=== PATIENT | female | born 1990 | race Caucasian/White ===

== ENCOUNTER 2020-12-08 18:20 | Emergency (ER) | payer OTHER ==
[2020-12-08] MEDS ORDERED: Sodium Chloride 0.9% 10 ML Syringe FLUSH PRN (18:44)
--- NOTE | 2020-12-08 18:56 | EDM.PDOC ---
ED HPI GENERAL MEDICAL PROBLEM - General Chief Complaint: CONSTRUCTION PLANT OPERATOR Problem Stated Complaint: 16 WKS PG CRAMPING AND SPOTTING Time Seen by Provider: 12/08/20 18:43 Source of Information: Reports: Patient, RN Notes Reviewed History Limitations: Reports: No Limitations - History of Present Illness INITIAL COMMENTS - FREE TEXT/NARRATIVE: Patient is a 29-year-old female who presents to the ER for the evaluation of her cramping and spotting while being 16 weeks . Patient's CONSTRUCTION PLANT OPERATOR is Dr. Olivo, she is a G3, P1 with 1 spontaneous miscarriage. Patient notes that she has been having some issues with spotting, roughly 2 weeks ago and she had a ultrasound at that time and was diagnosed with placenta previa. Patient notes that she has having some lower abdomen discomfort and pelvic cramping and did notice some spotting again today, so she comes to the ER for evaluation. She notes she did not call her CONSTRUCTION PLANT OPERATOR for today's purposes. She is not passing enough blood per vagina even to warrant a pad at this time. She is not complaining of any urinary issues like dysuria, frequency or urgency. She states that the pain is sharp and crampy in nature, seems to be constant but nothing seems to make it worse or better. Not having any fevers or chills, cough or shortness of breath, nausea/vomiting/diarrhea. Bilateral Lower Pelvic Pain Score (Numeric/FACES): 2 - Related Data Allergies Allergy/AdvReac Type Severity Reaction Status Date / Time Sulfa (Sulfonamide Allergy Rash Verified 12/08/20 18:54 Antibiotics) Home Meds: Home Meds Cefdinir [Omnicef] 300 mg PO BID 5 Days #10 cap 12/08/20 [Rx] Levothyroxine Sodium [Synthroid] 137 mcg PO ACBREAKFAST 12/08/20 [History] ED ROS GENERAL - Review of Systems Review Of Systems: Comprehensive ROS is negative, except as noted in HPI. ED EXAM - Physical Exam Exam: See Below Exam Limited By: No Limitations General Appearance: Alert, WD/WN, No Apparent Distress Respiratory/Chest: No Respiratory Distress, Lungs Clear, Normal Breath Sounds, No Accessory Muscle Use, Chest Non-Tender Cardiovascular: Normal Peripheral Pulses, Regular Rate, Rhythm, No Edema GI/Abdominal Exam: Normal Bowel Sounds, Soft, No Distention, No Mass, Tender (lower abdomen/pelvis) Heart Tones: Present Movement: Not Appreciated Extremities: Normal Inspection, Normal Capillary Refill Neurological: Alert, Oriented, Normal Cognition, No Motor/Sensory Deficits Psychiatric: Normal Affect, Normal Mood Skin Exam: Warm, Dry, Intact, Normal Color, No Rash Course - Vital Signs Last Recorded V/S: Last Vital Signs Temp 97.5 F 12/08/20 18:43 Pulse 102 H 12/08/20 18:43 Resp 18 12/08/20 18:43 BP 146/93 H 12/08/20 18:43 Pulse Ox 98 12/08/20 18:43 - Orders/Labs/Meds Orders: Active Orders 24 hr Category Date Time Status Peripheral IV Care [RC] . DIRECTED Care 12/08/20 18:45 Active CULTURE URINE [RM] Routine Lab 12/08/20 19:15 Received TYPE AND SCREEN [BBK] Stat Lab 12/08/20 19:15 Received Sodium Chloride 0.9% [Saline Flush] Med 12/08/20 18:44 Active 10 ml FLUSH ASDIRECTED PRN Peripheral IV Insertion Adult [OM.PC] Routine Oth 12/08/20 18:44 Ordered Medication Orders Sodium Chloride (Sodium Chloride 0.9% 10 Ml Syringe) 10 ml FLUSH ASDIRECTED PRN PRN Reason: Keep Vein Open Last Admin: 12/08/20 19:05 Dose: 10 ml Documented by: DASHA Labs: Laboratory Tests 12/08/20 12/08/20 Range/Units 19:15 19:36 WBC 9.77 (3.98-10.04) K/mm3 RBC 4.24 (3.98-5.22) M/mm3 Hgb 11.9 D (11.2-15.7) gm/dl Hct 36.5 (34.1-44.9) % MCV 86.1 (79.4-94.8) fl MCH 28.1 (25.6-32.2) pg MCHC 32.6 (32.2-35.5) g/dl RDW Std Deviation 45.6 (36.4-46.3) fL Plt Count 350 (182-369) K/mm3 MPV 9.4 (9.4-12.3) fl Neut % (Auto) 61.8 (34.0-71.1) % Lymph % (Auto) 29.3 (19.3-51.7) % [place] % (Auto) 7.2 (4.7-12.5) % Eos % (Auto) 1.5 (0.7-5.8) Baso % (Auto) 0.1 (0.1-1.2) % Neut # (Auto) 6.04 (1.56-6.13) K/mm3 Lymph # (Auto) 2.86 (1.18-3.74) K/mm3 [place] # (Auto) 0.70 H (0.24-0.36) K/mm3 Eos # (Auto) 0.15 (0.04-0.36) K/mm3 Baso # (Auto) 0.01 (0.01-0.08) K/mm3 Urine Color Yellow (Yellow) Urine Appearance Slt cloudy H (Clear) Urine pH 6.0 (5.0-8.0) Ur Specific [place] > or = 1.030 (1.005-1.030) Urine Protein Negative (Negative) Urine Glucose (UA) Negative (Negative) Urine Ketones Negative (Negative) Urine Occult Blood 2+ H (Negative) Urine Nitrite Negative (Negative) Urine Bilirubin Negative (Negative) Urine Urobilinogen 0.2 (0.2-1.0) Ur Leukocyte Esterase 1+ H (Negative) Urine RBC 5-10 H (0-5) /hpf Urine WBC 10-20 H (0-5) /hpf Ur Squamous Epith Cells 10-20 H (0-5) /hpf Urine Bacteria Many H (FEW) /hpf Urine Mucus Moderate H (FEW) /hpf Meds: Medications Generic Name Dose Route Start Last Admin Trade Name Freq PRN Reason Stop Dose Admin Sodium Chloride 10 ml 12/08/20 18:44 12/08/20 19:05 Sodium Chloride 0.9% 10 Ml Syringe FLUSH 10 ml ASDIRECTED PRN Administration Keep Vein Open - Re-Assessments/Exams Free Text/Narrative Re-Assessment/Exam: 12/08/20 19:16 Patient presents to the ER for her vaginal spotting/abdominal cramping in . We will go ahead and get an ultrasound for evaluation of the fetus, and take some basic labs for evaluation. 12/08/20 20:34 Basic labs have been obtained, hemoglobin is within normal limits, the patient's urinalysis is positive for UTI at this time was sent for culture. She be placed on oral Omnicef for management. Ultrasound shows a gestational age of 16 weeks 0 days, and appropriate amount of amniotic fluid. The placenta appears anterior and does appear to be slightly low-lying no findings of placental abruption. We will put her on bedrest for the weekend and have her follow-up with Dr. Olivo on Friday for ongoing management. Departure - Departure Time of Disposition: 20:35 Disposition: Home, Self-Care 01 Condition: Good Clinical Impression: Abdominal cramping complicating UTI (urinary tract infection) during Qualifiers: Trimester: second trimester Qualified Code(s): O23.42 - Unspecified infection of urinary tract in , second trimester - Discharge Information *PRESCRIPTION DRUG MONITORING PROGRAM REVIEWED*: No *COPY OF PRESCRIPTION DRUG MONITORING REPORT IN PATIENT FIDEL: No Prescriptions: Cefdinir [Omnicef] 300 mg PO BID 5 Days #10 cap Instructions: Abdominal Pain During , [id number], Urinary Tract Infection, Adult Referrals: Shirlene Hurtado POLICE DETECTIVE [Primary Care Provider] - Forms: ED Department Discharge Additional Instructions: You were evaluated in the ER today regarding your abdominal pain/vaginal bleeding in . You did have some labs drawn, and these were within normal limits. Your ultrasound demonstrated a fetus of roughly 16 weeks gestation, heart rate was 142 bpm, your placenta was low-lying, but there is no sign of placental abruption. Which is a good thing. Urine is suggestive of UTI at this time, will be started on Omnicef, 1 tablet twice daily for the next 5 days. This medication was electronically [facility] [place] [facility] Recommend that you do not lift anything heavier than a gallon of milk (5 lbs), do not engage in sexual activities, try to get as much pelvic rest as possible for the next few days. Please try not to exert yourself, rest and relax, and take it easy. Ideally if you could be on bed rest for the weekend this would be the best option. If you are start to bleed through more than 1-2 maxi pads every couple hours, this would be cause for concern to return to the ER for immediate management. Please follow up with your CONSTRUCTION PLANT OPERATOR on 12/11/2020, for ongoing management and follow-up appointment if possible. Please return to the ED at any time if your symptoms change or worsen. Sepsis Event Note (ED) - Evaluation Sepsis Screening Result: No Definite Risk - Focused Exam Vital Signs: Vital Signs Temp Pulse Resp BP Pulse Ox 12/08/20 18:43 97.5 F 102 H 18 146/93 H 98 - My Orders Last 24 Hours: My Active Orders 12/08/20 18:44 Sodium Chloride 0.9% [Saline Flush] 10 ml FLUSH ASDIRECTED PRN Peripheral IV Insertion Adult [OM.PC] Routine 12/08/20 18:45 Peripheral IV Care [RC] . DIRECTED 12/08/20 19:15 CULTURE URINE [RM] Routine TYPE AND SCREEN [BBK] Stat - Assessment/Plan Last 24 Hours: My Active Orders 12/08/20 18:44 Sodium Chloride 0.9% [Saline Flush] 10 ml FLUSH ASDIRECTED PRN Peripheral IV Insertion Adult [OM.PC] Routine 12/08/20 18:45 Peripheral IV Care [RC] . DIRECTED 12/08/20 19:15 CULTURE URINE [RM] Routine TYPE AND SCREEN [BBK] Stat
--- NOTE | 2020-12-08 20:18 | US ---
Obstetrical ultrasound: Multiple real-time images were obtained transabdominally. Comparison: Previous obstetrical ultrasounds are available, most recent study of 11/27/20. Dates: Working HOLLY: 05/25/21, gestational age 16 weeks 0 days Current ultrasound: HOLLY 05/25/21, gestational age 16 weeks 0 days presentation: Cephalic Placenta: Anterior and appears to be slightly low lying, no findings of placental abruption Amniotic fluid: SARAH 10.24 cm Measurements: BPD: 3.10 cm - 15 weeks 6 days Head circumference: 11.88 cm - 16 weeks 0 days Abdominal circumference: 9.94 cm - 16 weeks 0 days Femur: 1.95 cm - 15 weeks 6 days Estimated weight: 138 g (0 lbs. 5 oz.), estimated weight 34th percentile for age by working HOLLY and current ultrasound Heart rate: 142 bpm Cervical length: 4.20 cm Impression: 1. Single intrauterine fetus currently cephalic in presentation. Dates as noted above. 2. Low-lying placenta. 3. No other complicating abnormality is identified on obstetrical ultrasound study. Diagnostic code #2
== END 2020-12-08 20:54 | disposition home or self-care (01) ==
LOC: JD.ED 18:20
DX: O23.42 Unspecified infection of urinary tract in pregnancy, second trimester (principal); Z88.2 Allergy status to sulfonamides; Z79.899 Other long term (current) drug therapy; Z3A.16 16 weeks gestation of pregnancy
CPT/HCPCS: 36415; 76816; 76816-26; 81001; 85025; 86850; 86900; 86901; 87086; 99283; 99284-25

== ENCOUNTER 2021-05-21 07:01 | Inpatient (IN) | payer OTHER ==
[~2021-05-21 07:01] MED LIST: Bupivacaine 0.25% 10 ML SDV ONE
[2021-05-21] MEDS ORDERED: Ondansetron 4 MG/2 ML SDV IVPUSH PRN ×2 (07:14→07:34)
[2021-05-21] MEDS ORDERED: fentaNYL 100 MCG/2 ML SDV EPIDUR PRN (07:14)
[2021-05-21] MEDS ORDERED: diphenhydrAMINE 50 MG/ML SDV IVPUSH PRN (07:14)
[2021-05-21] MEDS ORDERED: Acetaminophen 325 MG Tab PO PRN (07:30)
[2021-05-21] MEDS ORDERED: Sodium Chloride 0.9% 10 ML Syringe FLUSH PRN (07:30)
[2021-05-21] MEDS ORDERED: Lidocaine 1% 50 ML MDV INJECT ONE (07:34)
[2021-05-21] MEDS ORDERED: Nalbuphine 10 MG/1 ML Vial IVPUSH PRN (07:34)
[2021-05-21] MEDS ORDERED: Calcium Carbonate 500 MG Tab.Chew PO PRN (07:34)
[2021-05-21] MEDS ORDERED: Oxytocin/Lactated Ringers 10 UNIT/1,000 ML BAG IV SCH (07:45)
[2021-05-21] MEDS: Lactated Ringers 1,000 ML IV SCH ×2 (08:04→16:48)
[2021-05-21] MEDS: Oxytocin/Lactated Ringers 10 UNIT/1,000 ML BAG IV SCH ×2 (08:04→15:34)
--- NOTE | 2021-05-21 09:35 | PCM.LDHP ---
L&D History of Present Illness - General Date of Service: 05/21/21 Admit Problem/Dx: Patient Status Order with Admit Dx/Problem 05/21/21 07:30 Patient Status [ADT] Routine Admission Diagnosis/Problem Admission Diagnosis/Problem 05/21/21 09:23 Avani is a 30-year-old 3 para 1-0-1-1 female admitted at 39-3/7 weeks gestational age with an HOLLY of 05/25/2021 for induction of labor. Source of Information: Patient History Limitations: Reports: No Limitations - History of Present Illness Introduction:: Avani is a 30-year-old 3 para 1-0-1-1 female admitted at 39-3/7 weeks gestational age with an HOLLY of 05/25/2021 for induction of labor. Seizure, risk, benefits, alternatives of care allowing for natural onset of labor all discussed with patient. She appears understand and wished to proceed. Risk factors for the include her weight of 256 pounds, hypothyroidism on replacement, history of asthma with exercise exacerbation, history of hydramnios in third trimester. Her prequel noninvasive screen done at first visit was negative for trisomy 2118 and 13. MILL WORK history: Avani is a 3 para 1-0-1-1. She had menarche at approximately age 11. Cycles are regular with interval at approximately 42 days. Last menstrual period was on 08/18/2020 and was fairly certain. She had multiple ultrasounds since that time all agreeing with her last menstrual p eriod. She is not using control time of conception. She has no history of abnormal Pap smears or sexually transmitted infections. She had infertility previously and took Clomid for this. History of miscarriage in 2017. 1 full- term delivery in 2008male infant born 05/10/2009 at 40 weeks gestational age after 24 hours of labor. 8 pounds 8 ounces. Epidural used. . Child's name is Ghassan. course: Patient was seen early in starting at 10-3/7 weeks gestational age. Ultrasound at that time was consistent with her dates. She had numerous ultrasounds because of the hydramnios and interval growth evaluation and these all correlated well with her dates by LMP. On last evaluation her baby on 05/14/2021 was estimated weight 6 pounds 14 ounces. Hydramnios is noted with an SARAH of 31.0 cm. She was seen by Dr. Kelvin LEZAMA for hydramnios and third trimester. That evaluation was positive hydramnios but unremarkable for potential cause of hydramnios. She had a -1-hour GTT. Her noninvasive screen with prequel was negative for trisomy 21, 18 and 13. No evidence of congenital anomaly was noted on tertiary level ultrasound screening exam. She has been cleared to deliver in [place]. Patient is group B strep negative. She desires natural but would like to use an epidural if necessary. Patient has exercise-induced asthma which is not causing her problems during the . She is hypothyroid on replacement and clinically euthyroid. She plans to breast-feed. Prequel is negative as described above. Tdap was given on 03/19/2021. MMR will evaluation shows her to be immune to rubella. Hepatitis B immunization given 2006. Last Td was given 03/27/2020. Laboratory testing in shows blood to be a positive negative [place] screen. Personal hemoglobin is 13.4 g/dL. Platelets 372,000. She is rubella immune. RPR is nonreactive. Urine culture was negative. Hepatitis B surface antigen and HIV assays were both negative. Chlamydia gonorrhea and hepatitis C antibody assays were negative. TSH on 10/09/2020 was normal at 2.757 milliunits per liter. Second trimester laboratory testing showed hemoglobin 11.2 g/dL. Platelets were 277,000. There are GTT was normal at 89 fasting, 142 at 1 hour, 112 with both 2 and 3-hour intervals. Group B strep screen negative. Allergies: Sulfa drugs which cause a rash some environmental allergies noted also Medications: 1. Levothyroxine 137 mg p.o. daily 2. ProAir HFA inhaler 108 (90 base) 1 to 2 puffs every 6 hours as needed for asthma 3. vitamins 4. Folic acid tablets daily (dose unknown) Past medical history: 1. Miscarriage x1 2. x1 3. Hypothyroidism on replacementclinically euthyroid 4. Remote history of infertility. 5. Varicose veins. Past surgical history: 1. Left ankle surgery 2009 Family history: Mother is alive and healthy at age 51. Maternal grand father is alive with history of lung cancer with chemotherapy, colon cancer and prostate cancernon-smoker. Paternal grandmother is alive with history of intestinal cancer and heart disease. Father is alive and well age 61. Paternal grandfather is alive history of prostate cancer. Paternal grandmother is secondary to heart disease. Did have breast cancer also. 1 brother 1 sister alive and well. No family history bleeding or clotting disorders, an esthesia problems or related problems. Social history: Patient is . is Jossue. She is a college graduate. She works in daycare. She lives in [place] with her family. She does not use any significance alcohol, drugs or tobacco. Review of systems: In general patient has no complaints. Skin: Negative Lungs: No infectious symptoms or shortness of breath Cardiovascular: No chest pain or exercise intolerance Breasts: No lumps, changes in size, pain, dimpling, discharge or axillary or supraclavicular concerns. GI: Negative : body habitus changes baby is active. She has had some contractions in the last 3 days. Musculoskeletal: Negative Neurological: Negative Physical exam: In general the patient is well-developed, well-nourished, pleasant female of stated age in no acute distress. Skin is warm dry without lesions. HEENT, neck and back within normal limits. Lungs are clear with good breath sounds in all lung mclean. Cardiovascular exam shows regular and rhythm without murmurs. Breast exam is deferred have been done at first annual visit and found to be normal is not repeated at this time. Patient does plan to breast-feed. Abdomen is gravid with fundal height on last evaluation clinic at 40.5 cm. Baby in vertex presentation. mariia. Genital per digital evaluation shows cervix to be 2+ centimeters, 7% effaced, -3 station, mid position, soft. Baby in vertex presentation.. Extremities and neurological exam are grossly within normal limits. - Related Data Allergies/Adverse Reactions: Allergies Allergy/AdvReac Type Severity Reaction Status Date / Time Sulfa (Sulfonamide Allergy Rash Verified 12/08/20 18:54 Antibiotics) Home Medications: Home Meds Cefdinir [Omnicef] 300 mg PO BID 5 Days #10 cap 12/08/20 [Rx] Levothyroxine Sodium [Synthroid] 137 mcg PO ACBREAKFAST 12/08/20 [History] Past Medical History - Past Health History Medical/Surgical History: Denies Medical/Surgical History Respiratory History: Reports: Asthma Endocrine/Metabolic History: Reports: Hypothyroidism - Infectious Disease History Infectious Disease History: Reports: Novel Coronavirus - Past Surgical History Endocrine Surgical History: Reports: None Social & Family History - Family History Family Medical History: No Pertinent Family History - Caffeine Use Caffeine Use: Reports: None H&P Review of Systems - Review of Systems: Review Of Systems: See Below L&D Exam - Exam Exam: See Below - Vital Signs Vital Signs: Last Vital Signs Temp 36.9 C 05/21/21 07:25 Pulse 99 05/21/21 07:25 Resp BP 119/54 L 05/21/21 07:25 Pulse Ox 96 05/21/21 07:25 Weight: 115.666 kg - Patient Data Lab Results Last 24 hrs: Laboratory Results - last 24 hr 05/21/21 05/21/21 05/21/21 Range/Units 07:30 07:45 07:45 WBC 9.76 (3.98-10.04) K/mm3 RBC 4.03 (3.98-5.22) M/mm3 Hgb 11.5 (11.2-15.7) gm/dl Hct 35.1 (34.1-44.9) % MCV 87.1 (79.4-94.8) fl MCH 28.5 (25.6-32.2) pg MCHC 32.8 (32.2-35.5) g/dl RDW Std Deviation 46.2 (36.4-46.3) fL Plt Count 277 (182-369) K/mm3 MPV 9.6 (9.4-12.3) fl SARS-CoV-2 RNA (RHONDA) Negative (NEGATIVE) Blood Type A POSITIVE Gel Antibody Screen Negative Result Diagrams: 05/21/21 07:45 - Problem List (1) 39 weeks gestation of SNOMED Code(s): 48557351 ICD Code: Z3A.39 - 39 WEEKS GESTATION OF Status: Acute Current Visit: Yes (2) Hydramnios SNOMED Code(s): 42320817 ICD Code: O40.9XX0 - POLYHYDRAMNIOS, UNSP TRIMESTER, NOT APPLICABLE OR UNSP Status: Acute Current Visit: Yes (3) Hypothyroidism SNOMED Code(s): 68610547 ICD Code: E03.9 - HYPOTHYROIDISM, UNSPECIFIED Status: Acute Current Visit: Yes (4) Obesity SNOMED Code(s): 817185291, 856830274 ICD Code: E66.9 - OBESITY, UNSPECIFIED Status: Acute Current Visit: Yes (5) History of miscarriage SNOMED Code(s): 620988482 ICD Code: Z87.59 - PERSONAL HISTORY OF COMP OF PREG, CHLDBRTH AND THE PUERP Status: Acute Current Visit: Yes Problem List Initiated/Reviewed/Updated: Yes Orders Last 24hrs: Active Orders 24 hr Category Date Time Status Patient Status [ADT] Routine ADT 05/21/21 07:30 Active Communication Order [RC] ASDIRECTED Care 05/21/21 07:30 Active Communication Order [RC] ASDIRECTED Care 05/21/21 07:30 Active Communication Order [RC] ASDIRECTED Care 05/21/21 07:30 Active Communication Order [RC] ASDIRECTED Care 05/21/21 07:35 Active Heart Tones [RC] ASDIRECTED Care 05/21/21 07:35 Active Monitoring [RC] INTERMITTENT Care 05/21/21 07:30 Active Notify Provider [RC] ASDIRECTED Care 05/21/21 07:14 Active Notify Provider [RC] ASDIRECTED Care 05/21/21 07:30 Active Notify Provider [RC] PFP Care 05/21/21 07:35 Active Notify Provider [RC] PRN Care 05/21/21 07:35 Active Oxygen Therapy [RC] ASDIRECTED Care 05/21/21 07:14 Active Peripheral IV Care [RC] . DIRECTED Care 05/21/21 07:31 Active Pulse Oximetry [RC] ASDIRECTED Care 05/21/21 07:14 Active Pump Management, Intrathecal [RC] ASDIRECTED Care 05/21/21 07:35 Active Up ad Batsheva [RC] ASDIRECTED Care 05/21/21 07:33 Active Urinary Catheter Assessment [RC] ASDIRECTED Care 05/21/21 07:34 Active Vaginal Exam [RC] ASDIRECTED Care 05/21/21 07:30 Active Vital Signs [RC] ASDIRECTED Care 05/21/21 07:30 Active Regular Diet [DIET] Diet 05/21/21 Breakfast Active CORONAVIRUS COVID-19 RHONDA [MOLEC] Stat Lab 05/21/21 07:30 Received RAPID PLASMA REAGIN,RPR [CHEM] Routine Lab 05/21/21 07:45 Received Acetaminophen [TylenoL] Med 05/21/21 07:30 Active 650 mg PO Q4H PRN Bupivacaine/fentaNYL/NS [fentaNYL/Bupivacaine/NS 2 MCG- Med 05/21/21 07:15 Active 0.125% 100 ML] 100 ml EPIDUR ASDIRECTED Calcium Carbonate [Tums] Med 05/21/21 07:34 Active 1,000 mg PO Q2H PRN Lactated Ringers [Ringers, Lactated] 1,000 ml Med 05/21/21 07:30 Active IV ASDIRECTED Nalbuphine [Nubain] Med 05/21/21 07:34 Active 10 mg IVPUSH Q2H PRN Ondansetron [Zofran] Med 05/21/21 07:14 Active 4 mg IVPUSH ONETIME PRN Ondansetron [Zofran] Med 05/21/21 07:34 Active 4 mg IVPUSH Q4H PRN Oxytocin/Lactated Ringers [Pitocin in LR 10 Units/1,000 Med 05/21/21 07:45 Active ML] 10 unit in 1,000 ml IV .CONTINUOUS Oxytocin/Lactated Ringers [Pitocin in LR 10 Units/1,000 Med 05/21/21 07:30 Active ML] 10 unit in 1,000 ml IV TITRATE Phenylephrine HCl In 0.9% NaCl [Phenylephrine 1 MG/10 Med 05/21/21 07:14 Active ML-NS] 0.1 mg IVPUSH Q10M PRN Sodium Chloride 0.9% [Saline Flush] Med 05/21/21 07:30 Active 10 ml FLUSH ASDIRECTED PRN diphenhydrAMINE [Benadryl] Med 05/21/21 07:14 Active 25 mg IVPUSH Q6H PRN ePHEDrine [ePHEDrine sulfate] Med 05/21/21 07:14 Active 5 mg IVPUSH ASDIRECTED PRN fentaNYL [Sublimaze] Med 05/21/21 07:14 Active 100 mcg EPIDUR Q3H PRN Electronic Heart Tones Ext w TOCO [WOMSER] Oth 05/21/21 07:35 Ordered Routine Electronic Heart Tones Internal [WOMSER] Per Unit Oth 05/21/21 07:35 Ordered Routine Peripheral IV Insertion Adult [OM.PC] Routine Ot 05/21/21 07:30 Ordered Medication Orders Acetaminophen (Acetaminophen 325 Mg Tab) 650 mg PO Q4H PRN PRN Reason: Fever greater than 100.4 Calcium Carbonate/Glycine (Calcium Carbonate 500 Mg Tab.Chew) 1,000 mg PO Q2H PRN PRN Reason: Indigestion Diphenhydramine HCl (Diphenhydramine 50 Mg/Ml Sdv) 25 mg IVPUSH Q6H PRN PRN Reason: pruritis Ephedrine Sulfate (Ephedrine 50 Mg/Ml Sdv) 5 mg IVPUSH ASDIRECTED PRN PRN Reason: Hypotension Fentanyl (Fentanyl 100 Mcg/2 Ml Sdv) 100 mcg EPIDUR Q3H PRN PRN Reason: Pain Fentanyl/Bupivacaine HCl (Bupivacaine/Fentanyl/Ns 100 Ml Bag) 100 ml EPIDUR ASDIRECTED LOLA Lactated Ringer's (Ringers, Lactated) 1,000 mls @ 40 mls/hr IV ASDIRECTED LOLA Last Admin: 05/21/21 08:04 Dose: 40 mls/hr Documented by: RUMMVIR Oxytocin/Lactated Ringer's (Pitocin In Lr 10 Units/1,000 Ml) 10 unit in 1,000 mls @ 12 mls/hr IV TITRATE LOLA; Protocol Last Admin: 05/21/21 08:04 Dose: 2 munits/min, 12 mls/hr Documented by: RUMMVIR Oxytocin/Lactated Ringer's (Pitocin In Lr 10 Units/1,000 Ml) 10 unit in 1,000 mls @ 500 mls/hr IV .CONTINUOUS LOLA Miscellaneous Medication (Phenylephrine Hcl In 0.9% Nacl 1 Mg/10 Ml Syringe) 0.1 mg IVPUSH Q10M PRN PRN Reason: Hypotension Nalbuphine HCl (Nalbuphine 10 Mg/1 Ml Vial) 10 mg IVPUSH Q2H PRN PRN Reason: Pain Ondansetron HCl (Ondansetron 4 Mg/2 Ml Sdv) 4 mg IVPUSH ONETIME PRN PRN Reason: Nausea/Vomiting Ondansetron HCl (Ondansetron 4 Mg/2 Ml Sdv) 4 mg IVPUSH Q4H PRN PRN Reason: Nausea/Vomiting Sodium Chloride (Sodium Chloride 0.9% 10 Ml Syringe) 10 ml FLUSH ASDIRECTED PRN PRN Reason: Keep Vein Open Assessment/Plan Comment:: 1. 30-year-old 3 para 1-0-1-1 white female at 39-3/7 weeks gestational age admitted for induction of labor. 2. Risk factors as above including hydramnios, obesity, hypothyroidism, asthma- exercise exacerbated, history of miscarriage 3. Patient plans to breast-feed 4. Patient is okay with epidural Plan: 1. Pitocin induction with AROM augmentation when possible 2. Epidural as needed per patient 3. Routine admission labs 4. Support breast-feeding decision 5. Anticipate .
--- NOTE | 2021-05-21 13:34 | PCM.PREANE ---
Preanesthetic Assessment - Procedure Proposed Procedure: Epidural - Anesthesia/Transfusion/Family Hx Anesthesia History: Prior Anesthesia Without Reaction Family History of Anesthesia Reaction: No Transfusion History: No Prior Transfusion(s) Intubation History: Unknown - Review of Systems General: No Symptoms Pulmonary: No Symptoms (Asthma: exercise induced. last albuterol a few weeks ago.), Cough Cardiovascular: No Symptoms Gastrointestinal: No Symptoms (GERD), Nausea Neurological: No Symptoms, Tingling (Bilateral hands.) Other: Reports: None, Thyroid Problems (hypothyroid) - Physical Assessment NPO Status Date: 05/21/21 NPO Status Time: 09:45 Vital Signs: Last Vital Signs Temp 36.9 C 05/21/21 07:25 Pulse 99 05/21/21 07:25 Resp BP 119/54 L 05/21/21 07:25 Pulse Ox 96 05/21/21 07:25 Height: 1.6 m Weight: 115.666 kg ASA Class: 3 Mental Status: Alert & Oriented x3 Airway Class: Mallampati = 2 Dentition: Reports: Normal Dentition, Caries Thyro-Mental Finger Breadths: 3 Mouth Opening Finger Breadths: 3 ROM/Head Extension: Full Lungs: Clear to Auscultation, Normal Respiratory Effort Cardiovascular: Regular Rate, Regular Rhythm, No Murmurs - Lab Values: Laboratory Last Values WBC 9.76 K/mm3 (3.98-10.04) 05/21/21 07:45 RBC 4.03 M/mm3 (3.98-5.22) 05/21/21 07:45 Hgb 11.5 gm/dl (11.2-15.7) 05/21/21 07:45 Hct 35.1 % (34.1-44.9) 05/21/21 07:45 MCV 87.1 fl (79.4-94.8) 05/21/21 07:45 MCH 28.5 pg (25.6-32.2) 05/21/21 07:45 MCHC 32.8 g/dl (32.2-35.5) 05/21/21 07:45 RDW Std Deviation 46.2 fL (36.4-46.3) 05/21/21 07:45 Plt Count 277 K/mm3 (182-369) 05/21/21 07:45 MPV 9.6 fl (9.4-12.3) 05/21/21 07:45 SARS-CoV-2 RNA (RHONDA) Negative (NEGATIVE) 05/21/21 07:30 Blood Type A POSITIVE 05/21/21 07:45 Gel Antibody Screen Negative 05/21/21 07:45 Above labs reviewed and noted and within acceptable ranges to proceed with epidural if desired. - Allergies Allergies/Adverse Reactions: Allergies Allergy/AdvReac Type Severity Reaction Status Date / Time Sulfa (Sulfonamide Allergy Rash Verified 12/08/20 18:54 Antibiotics) - Anesthesia Plan Pre-Op Medication Ordered: None - Acknowledgements Anesthesia Type Planned: Epidural Pt an Appropriate Candidate for the Planned Anesthesia: Yes Alternatives and Risks of Anesthesia Discussed w Pt/Guardian: Yes Pt/Guardian Understands and Agrees with Anesthesia Plan: Yes PreAnesthesia Questionnaire - Past Health History Medical/Surgical History: Denies Medical/Surgical History Respiratory History: Reports: Asthma Endocrine/Metabolic History: Reports: Hypothyroidism - Infectious Disease History Infectious Disease History: Reports: Novel Coronavirus - Past Surgical History Endocrine Surgical History: Reports: None - SUBSTANCE USE Tobacco Use Status *Q: Never Tobacco User Tobacco Use Within Last Twelve Months: No Second Hand Smoke Exposure: No Recreational Drug Use History: No - HOME MEDS Home Medications: Home Meds Cefdinir [Omnicef] 300 mg PO BID 5 Days #10 cap 12/08/20 [Rx] Levothyroxine Sodium [Synthroid] 137 mcg PO ACBREAKFAST 12/08/20 [History] - CURRENT (IN HOUSE) MEDS Current Meds: Current Medications Acetaminophen (Acetaminophen 325 Mg Tab) 650 mg PO Q4H PRN PRN Reason: Fever greater than 100.4 Calcium Carbonate/Glycine (Calcium Carbonate 500 Mg Tab.Chew) 1,000 mg PO Q2H PRN PRN Reason: Indigestion Diphenhydramine HCl (Diphenhydramine 50 Mg/Ml Sdv) 25 mg IVPUSH Q6H PRN PRN Reason: pruritis Ephedrine Sulfate (Ephedrine 50 Mg/Ml Sdv) 5 mg IVPUSH ASDIRECTED PRN PRN Reason: Hypotension Fentanyl (Fentanyl 100 Mcg/2 Ml Sdv) 100 mcg EPIDUR Q3H PRN PRN Reason: Pain Fentanyl/Bupivacaine HCl (Bupivacaine/Fentanyl/Ns 100 Ml Bag) 100 ml EPIDUR ASDIRECTED LOLA Lactated Ringer's (Ringers, Lactated) 1,000 mls @ 40 mls/hr IV ASDIRECTED LOLA Last Admin: 05/21/21 08:04 Dose: 40 mls/hr Documented by: Oxytocin/Lactated Ringer's (Pitocin In Lr 10 Units/1,000 Ml) 10 unit in 1,000 mls @ 12 mls/hr IV TITRATE LOLA; Protocol Last Titration: 05/21/21 13:02 Dose: 16 munits/min, 96 mls/hr Documented by: Oxytocin/Lactated Ringer's (Pitocin In Lr 10 Units/1,000 Ml) 10 unit in 1,000 mls @ 500 mls/hr IV .CONTINUOUS LOLA Miscellaneous Medication (Phenylephrine Hcl In 0.9% Nacl 1 Mg/10 Ml Syringe) 0.1 mg IVPUSH Q10M PRN PRN Reason: Hypotension Nalbuphine HCl (Nalbuphine 10 Mg/1 Ml Vial) 10 mg IVPUSH Q2H PRN PRN Reason: Pain Ondansetron HCl (Ondansetron 4 Mg/2 Ml Sdv) 4 mg IVPUSH ONETIME PRN PRN Reason: Nausea/Vomiting Ondansetron HCl (Ondansetron 4 Mg/2 Ml Sdv) 4 mg IVPUSH Q4H PRN PRN Reason: Nausea/Vomiting Sodium Chloride (Sodium Chloride 0.9% 10 Ml Syringe) 10 ml FLUSH ASDIRECTED PRN PRN Reason: Keep Vein Open Discontinued Medications Lidocaine HCl (Lidocaine 1% 50 Ml Mdv) 20 ml INJECT ONETIME ONE Stop: 05/21/21 07:35
[2021-05-21] MEDS: Bupivacaine/fentaNYL/NS 100 ML Bag EPIDUR SCH ×2 (13:59→23:02)
[2021-05-21] MEDS: ePHEDrine 50 MG/ML SDV IVPUSH PRN ×3 (14:42→15:15)
[2021-05-21] MEDS: Sodium Chloride 0.9% 1,000 ML ONE ×3 (16:44→17:47)
[2021-05-21] MEDS ORDERED: Sodium Chloride 0.9% 1,000 ML IRR SCH (17:45)
[2021-05-22] MEDS: Lactated Ringers 1,000 ML IV SCH ×2 (01:15→02:28)
[2021-05-22] MEDS: Sodium Chloride 0.9% 1,000 ML ONE (02:26)
[2021-05-22] MEDS: Bupivacaine/fentaNYL/NS 100 ML Bag EPIDUR SCH (07:13)
--- NOTE | 2021-05-22 08:52 | PCM.SN.2 ---
- Free Text/Narrative Note: Delivery note: Stage I: Avani is a 30-year-old 3 para 1-0-1-1 female admitted at 39- 3/7 weeks gestational age with an HOLLY of 05/25/2021 for induction of labor. Because of the presenting station of the baby the patient was started on Pitocin initially after the head was brought down well against the cervix AROM was undertaken with resultant clear amniotic fluid in very large amounts. Findings consistent with hydramnios. Patient progressed very slowly in labor. heart tones were generally reassuring. Variable decelerations were noted especially when patient was pushed with Pitocin. Because of this a slow approach was used. Amnioinfusion was undertaken to attempt to alleviate the variable decelerations. This was successful. Patient underwent labor analgesia with epidural. She tolerated this well and had good results. Stage II: Avani became complete at approximately 0745 hours. She pushed for approximately 15 minutes and delivered a viable, rivera, female named Jorge Cha in a left occiput anterior position at 0758 hrs. on 05/22/2021.. The shoulders were delivered with minimal difficulty. The baby was placed on mom's abdomen. Nose and mouth were bulb suctioned and the baby was dried with warm blanket. The umbilical cord is clamped x2 and the baby was taken to the warmer for blow-by oxygen and short period of positive pressure ventilation. With this the baby recovered well and had Apgars of 4 and 9. Cord bloods obtained. Umbilical cord had 3 vessels. Pitocin was increased to 500 cc an hour using a standard solution. This to facilitate increase uterine tone and decrease likelihood of hemorrhage. The patient was noted to have a periclitoral lacerati on approximately 1 cm in length but with a single bleeder within it. 2 [id number] sutures were placed to control this. Hemostasis was confirmed. No perineal or vaginal lacerations were noted. Stage III: The placenta delivered in a Diaz presentation, appeared intact and complete and was discarded per patient desire at 0815 hrs. Estimated blood loss was 200 cc. Patient plans to breast-feed. Condition: Good Time Documentation
[2021-05-22] MEDS ORDERED: Witch Hazel Medicated Pads 40/Jar TOP PRN (09:33)
[2021-05-22] MEDS ORDERED: Docusate Sodium 100 MG Cap PO PRN (09:33)
[2021-05-22] MEDS ORDERED: Benzocaine/Menthol 20%-0.5% Spray 78 GM Cannister TOP PRN (09:33)
[2021-05-22] MEDS: Ibuprofen 600 MG Tab PO PRN ×3 (11:12→21:55)
[2021-05-22] MEDS: Acetaminophen 325 MG Tab PO PRN ×2 (14:43→19:16)
[2021-05-23] MEDS: Ibuprofen 600 MG Tab PO PRN ×2 (03:31→08:39)
[2021-05-23] MEDS ORDERED: Levothyroxine 112 MCG Tab PO SCH (06:00)
[2021-05-23] MEDS ORDERED: Levothyroxine 25 MCG Tab PO SCH (06:00)
--- NOTE | 2021-05-23 10:40 | PCM.DCSUM1 ---
Discharge Summary - Hospital Course Free Text/Narrative:: Stage I: Avani is a 30-year-old 3 para 1-0-1-1 female admitted at 39- 3/7 weeks gestational age with an HOLLY of 05/25/2021 for induction of labor. Because of the presenting station of the baby the patient was started on Pitocin initially after the head was brought down well against the cervix AROM was undertaken with resultant clear amniotic fluid in very large amounts. Findings consistent with hydramnios. Patient progressed very slowly in labor. heart tones were generally reassuring. Variable decelerations were noted especially when patient was pushed with Pitocin. Because of this a slow approach was used. Amnioinfusion was undertaken to attempt to alleviate the variable decelerations. This was successful. Patient underwent labor analgesia with epidural. She tolerated this well and had good results. Stage II: Avani became complete at approximately 0745 hours. She pushed for approximately 15 minutes and delivered a viable, rivera, female infant named Jorge Cha in a left occiput anterior position at 0758 hrs. on 05/22/2021.. The shoulders were delivered with minimal difficulty. The baby was placed on mom's abdomen. Nose and mouth were bulb suctioned and the baby was dried with warm blanket. The umbilical cord is clamped x2 and the baby was taken to the warmer for blow-by oxygen and short period of positive pressure ventilation. With this the baby recovered well and had Apgars of 4 and 9. Cord bloods obtained. Umbilical cord had 3 vessels. Pitocin was increased to 500 cc an hour using a standard solution. This to facilitate increase uterine tone and decrease likelihood of hemorrhage. The patient was noted to have a periclitoral laceration approximately 1 cm in length but with a single bleeder within it. 2 [id number] sutures were placed to control this. Hemostasis was confirmed. No perineal or vaginal lacerations were noted. Stage III: The placenta delivered in a Diaz presentation, appeared intact and complete and was discarded per patient desire at 0815 hrs. Estimated blood loss was 200 cc. Patient plans to breast-feed. patient has done well. She is nursing without problems. She has minimal lochia. She is voiding well. She is desiring discharge home. Condition: Good Diagnosis: Stroke: No - Discharge Data Discharge Date: 05/23/21 Discharge Disposition: Home, Self-Care 01 Condition: Good - Referral to Home Health Primary Care Physician: Tucker Olivo MD - Discharge Diagnosis/Problem(s) (1) 39 weeks gestation of SNOMED Code(s): 68014094 ICD Code: Z3A.39 - 39 WEEKS GESTATION OF Status: Acute Current Visit: Yes (2) Hydramnios SNOMED Code(s): 95974673 ICD Code: O40.9XX0 - POLYHYDRAMNIOS, UNSP TRIMESTER, NOT APPLICABLE OR UNSP Status: Acute Current Visit: Yes (3) Hypothyroidism SNOMED Code(s): 68768499 ICD Code: E03.9 - HYPOTHYROIDISM, UNSPECIFIED Status: Acute Current Visit: Yes (4) Obesity SNOMED Code(s): 313236160, 982735514 ICD Code: E66.9 - OBESITY, UNSPECIFIED Status: Acute Current Visit: Yes (5) History of miscarriage SNOMED Code(s): 687086237 ICD Code: Z87.59 - PERSONAL HISTORY OF COMP OF PREG, CHLDBRTH AND THE PUERP Status: Acute Current Visit: Yes - Patient Instructions Diet: Regular Diet as Tolerated Activity: As Tolerated Driving: May Drive Today Showering/Bathing: May Shower Notify Provider of: Fever, Increased Pain, Swelling and Redness, Nausea and/or Vomiting - Discharge Plan Home Medications: Home Meds Levothyroxine Sodium [Synthroid] 137 mcg PO ACBREAKFAST 12/08/20 [History] Acetaminophen [Tylenol] 650 mg PO Q4H PRN tablet 05/23/21 [Rx] Ibuprofen [Motrin] 600 mg PO Q4H PRN tablet 05/23/21 [Rx] Patient Handouts: and Breast Care, Care After Vaginal Delivery Referrals: Tucker Olivo MD [Primary Care Provider] - - Discharge Summary/Plan Comment DC Time >30 min.: No Total # of Minutes for Discharge Time: 10 - Patient Data Vitals - Most Recent: Last Vital Signs Temp 36.3 C 05/23/21 07:37 Pulse 99 05/23/21 07:37 Resp 14 05/23/21 07:37 BP 133/67 05/23/21 07:37 Pulse Ox 99 05/23/21 07:37 Weight - Most Recent: 115.666 kg I&O - Last 24 hours: Intake & Output 05/22/21 05/23/21 05/23/21 22:59 06:59 14:59 Intake Total 640 Balance 640 Med Orders - Current: Current Medications Acetaminophen (Acetaminophen 325 Mg Tab) 650 mg PO Q4H PRN PRN Reason: mild pain or fever Last Admin: 05/22/21 19:16 Dose: 650 mg Documented by: Benzocaine/Menthol (Benzocaine/Menthol 20%-0.5% [place] 78 Gm Cannister) 0 gm TOP ASDIRECTED PRN PRN Reason: Perineal Comfort Measure Last Admin: 05/22/21 11:01 Dose: 1 applic Documented by: Docusate Sodium (Docusate Sodium 100 Mg Cap) 100 mg PO BID PRN PRN Reason: Constipation Last Admin: 05/23/21 08:39 Dose: 100 mg Documented by: Ibuprofen (Ibuprofen 600 Mg Tab) 600 mg PO Q4H PRN PRN Reason: Mild pain or fever Last Admin: 05/23/21 08:39 Dose: 600 mg Documented by: Levothyroxine Sodium (Levothyroxine 112 Mcg Tab) 112 mcg PO ACBREAKFAST [facility] Last Admin: 05/23/21 05:51 Dose: 112 mcg Documented by: Levothyroxine Sodium (Levothyroxine 25 Mcg Tab) 25 mcg PO ACBREAKFAST LOLA Last Admin: 05/23/21 05:50 Dose: 25 mcg Documented by: Suzanne Mcclelland (Suzanne Mcclelland Medicated Pads 40/Jar) 1 pad TOP ASDIRECTED PRN PRN Reason: Perineal Comfort Measure Last Admin: 05/22/21 11:01 Dose: 1 applic Documented by: Discontinued Medications Acetaminophen (Acetaminophen 325 Mg Tab) 650 mg PO Q4H PRN PRN Reason: Fever greater than 100.4 Bupivacaine HCl (Bupivacaine 0.25% 10 Ml Sdv) 10 ml .ROUTE .STK-MED ONE Stop: 05/21/21 00:01 Calcium Carbonate/Glycine (Calcium Carbonate 500 Mg Tab.Chew) 1,000 mg PO Q2H PRN PRN Reason: Indigestion Diphenhydramine HCl (Diphenhydramine 50 Mg/Ml Sdv) 25 mg IVPUSH Q6H PRN PRN Reason: pruritis Ephedrine Sulfate (Ephedrine 50 Mg/Ml Sdv) 5 mg IVPUSH ASDIRECTED PRN PRN Reason: Hypotension Last Admin: 05/21/21 15:15 Dose: 5 mg Documented by: Fentanyl (Fentanyl 100 Mcg/2 Ml Sdv) 100 mcg EPIDUR Q3H PRN PRN Reason: Pain Last Admin: 05/21/21 13:58 Dose: 100 mcg Documented by: Fentanyl/Bupivacaine HCl (Bupivacaine/Fentanyl/Ns 100 Ml Bag) 100 ml EPIDUR ASDIRECTED LOLA Last Admin: 05/22/21 07:13 Dose: 100 ml Documented by: Lactated Ringer's (Ringers, Lactated) 1,000 mls @ 40 mls/hr IV ASDIRECTED LOLA Last Admin: 05/22/21 02:28 Dose: 999 mls/hr Documented by: Oxytocin/Lactated Ringer's (Pitocin In Lr 10 Units/1,000 Ml) 10 unit in 1,000 mls @ 12 mls/hr IV TITRATE LOLA; Protocol Last Titration: 05/22/21 05:28 Dose: 3 munits/min, 18 mls/hr Documented by: Oxytocin/Lactated Ringer's (Pitocin In Lr 10 Units/1,000 Ml) 10 unit in 1,000 mls @ 500 mls/hr IV .CONTINUOUS LOLA Sodium Chloride (Sodium Chloride 0.9%) 1,000 mls @ 100 mls/hr IRR ASDIRECTED LOLA Last Admin: 05/22/21 02:28 Dose: 100 mls/hr Documented by: Sodium Chloride (Normal Saline) Confirm Administered Dose 1,000 mls @ as directed .ROUTE .STK-MED ONE Stop: 05/21/21 17:42 Last Admin: 05/21/21 17:47 Dose: Not Given Documented by: Lidocaine HCl (Lidocaine 1% 50 Ml Mdv) 20 ml INJECT ONETIME ONE Stop: 05/21/21 07:35 Last Admin: 05/22/21 22:56 Dose: Not Given Documented by: Miscellaneous Medication (Phenylephrine Hcl In 0.9% Nacl 1 Mg/10 Ml Syringe) 0.1 mg IVPUSH Q10M PRN PRN Reason: Hypotension Nalbuphine HCl (Nalbuphine 10 Mg/1 Ml Vial) 10 mg IVPUSH Q2H PRN PRN Reason: Pain Ondansetron HCl (Ondansetron 4 Mg/2 Ml Sdv) 4 mg IVPUSH ONETIME PRN PRN Reason: Nausea/Vomiting Ondansetron HCl (Ondansetron 4 Mg/2 Ml Sdv) 4 mg IVPUSH Q4H PRN PRN Reason: Nausea/Vomiting Last Admin: 05/22/21 07:08 Dose: 4 mg Documented by: Sodium Chloride (Sodium Chloride 0.9% 10 Ml Syringe) 10 ml FLUSH ASDIRECTED PRN PRN Reason: Keep Vein Open
[2021-05-23] MEDS: Acetaminophen 325 MG Tab PO PRN (11:20)
--- NOTE | 2021-05-23 14:42 | PCM48HPAN ---
Post Anesthesia Note - EVALUATION WITHIN 48HRS OF ANESTHETIC Vital Signs in Normal Range: Yes Patient Participated in Evaluation: Yes Respiratory Function Stable: Yes Airway Patent: Yes Cardiovascular Function Stable: Yes Hydration Status Stable: Yes Pain Control Satisfactory: Yes Nausea and Vomiting Control Satisfactory: Yes Mental Status Recovered: Yes Vital Signs: Last Vital Signs Temp 97.3 F 05/23/21 07:37 Pulse 99 05/23/21 07:37 Resp 14 05/23/21 07:37 BP 133/67 05/23/21 07:37 Pulse Ox 99 05/23/21 07:37 - COMMENTS/OBSERVATIONS Free Text/Narrative:: Visited with patient regarding her epidural experience. Patient stated that it "worked great". Discussed signs and symptoms of infection, post-dural puncture headache, and post- depression. Patient denying any of those symptoms at this time. Encouraged patient to contact OB/Anesthesia if any of these symptoms develop even after the patient goes home so the patient may be treated accordingly if needed. Also discussed that the patient may experience some back pain from the epidural placement. Patient stated that she does have some mild discomfort in which she described as a bruise. Encouraged patient to contact OB/Anesthesia if her back pain get worse. Patient verbalized understanding. No questions or concerns verbalized at this time. Siomara Quispe, COMMUNICABLE DISEASE SPECIALIST
== END 2021-05-23 17:10 | disposition home or self-care (01) | DRG 807 ==
LOC: JD.OB 07:01 → OBSVTOIN 05-22 07:58 → JD.OB 05-22 08:35
PROVIDERS: ADMIT Obstetrics & Gynecology; ATTEND Obstetrics & Gynecology
PROC: 3E033VJ Introduction of Other Hormone into Peripheral Vein, Percutaneous Approach (ICD-10-PCS; principal; 2021-05-22)
PROC: 10E0XZZ Delivery of Products of Conception, External Approach (ICD-10-PCS; 2021-05-22)
PROC: 10907ZC Drainage of Amniotic Fluid, Therapeutic from Products of Conception, Via Natural or Artificial Opening (ICD-10-PCS; 2021-05-22)
PROC: 3E0R3BZ Introduction of Anesthetic Agent into Spinal Canal, Percutaneous Approach (ICD-10-PCS; 2021-05-22)
PROC: 0HQ9XZZ Repair Perineum Skin, External Approach (ICD-10-PCS; 2021-05-22)
DX: O40.3XX0 Polyhydramnios, third trimester, not applicable or unspecified (principal); Z37.0 Single live birth; Z3A.39 39 weeks gestation of pregnancy; O70.0 First degree perineal laceration during delivery; O76 Abnormality in fetal heart rate and rhythm complicating labor and delivery; O99.284 Endocrine, nutritional and metabolic diseases complicating childbirth; E03.9 Hypothyroidism, unspecified; O99.214 Obesity complicating childbirth; Z20.822 Contact with and (suspected) exposure to COVID-19
CPT/HCPCS: 01967; 36415; 51702; 59025; 59409; 85027; 86592; 86850; 86900; 86901; A9270-GY; J2405; J2590; J3010; J3490; J7030; J7120; U0002

== ENCOUNTER 2023-08-26 12:51 | Inpatient (IN) | payer OTHER ==
[~2023-08-26 12:51] MED LIST changes: -Bupivacaine 0.25% 10 ML SDV ONE; +Lidocaine 1% 10 ML MDV ONE; +Phenylephrine 1% 10 MG/ML SDV ONE
[2023-08-26] MEDS ORDERED: Acetaminophen 325 MG Tab PO PRN (13:00)
[2023-08-26] MEDS ORDERED: Lidocaine 1% 50 ML MDV INJECT PRN (13:00)
[2023-08-26] MEDS ORDERED: Oxytocin/Lactated Ringers 30 UNIT/500 ML BAG IV SCH ×2 (13:00)
[2023-08-26] MEDS ORDERED: Sodium Chloride 0.9% 10 ML Syringe FLUSH PRN (13:00)
[2023-08-26] MEDS ORDERED: Nalbuphine HCl 10 MG/ 1ML Amp IVPUSH PRN (13:00)
[2023-08-26 13:33] LABS: BASOPHILS PERCENT AUTO 0.2 % (0.0-1.0); EOSINOPHILS ABSOLUTE AUTO 0.1 K/mm3 (0.0-0.4); EOSINOPHILS PERCENT AUTO 0.9 % (0.0-6.0); HEMATOCRIT 34.8 % (37.0-47.0); HEMOGLOBIN 11.4 gm/dl (12.0-16.0); IMMATURE GRAN ABSOLUTE AUTO 0.03 K/mm3 (0.00-0.05); IMMATURE GRAN PERCENT AUTO 0.4 % (0.0-0.4); MEAN CORPUSCULAR HEMOGLOBIN 28.3 pg (28.0-32.0); MEAN CORPUSCULAR HGB CONC 32.8 g/dl (32.0-36.0); MEAN CORPUSCULAR VOLUME 86.4 fl (83.0-99.0); MEAN PLATELET VOLUME 9.8 fl (9.4-12.3); MONOCYTES ABSOLUTE AUTO 0.6 K/mm3 (0.0-0.8); MONOCYTES PERCENT AUTO 6.9 % (0.0-8.0); NEUTROPHILS ABSOLUTE AUTO 5.4 K/mm3 (1.8-7.7); NEUTROPHILS PERCENT AUTO 66.6 % (41.0-71.0); PLATELET COUNT,PLT 268 K/mm3 (150-400); RED BLOOD CELL COUNT 4.03 M/mm3 (4.10-5.30); WHITE BLOOD CELL COUNT,WBC 8.16 K/mm3 (3.9-11.3)
[2023-08-26] MEDS: Lactated Ringers 1,000 ML IV SCH ×2 (13:38→21:14)
[2023-08-26] MEDS ORDERED: Bupivacaine/fentaNYL/NS 100 ML Bag EPIDUR PRN (14:39)
[2023-08-26] MEDS ORDERED: ePHEDrine 50 MG/ML SDV IVPUSH PRN (14:39)
[2023-08-26] MEDS ORDERED: diphenhydrAMINE 50 MG/ML SDV IVPUSH PRN (14:39)
[2023-08-26] MEDS ORDERED: fentaNYL 100 MCG/2 ML SDV EPIDUR PRN (14:39)
[2023-08-26 15:19] LABS: A/G RATIO 0.6 (1-2); ALBUMIN 2.7 g/dl (3.4-5.0); BILIRUBIN TOTAL 0.3 mg/dL (0.2-1.0); BUN/CREATININE RATIO 17.1 (14-18); CALCIUM 8.9 mg/dL (8.5-10.1); CREATININE 0.7 mg/dL (0.55-1.02); EST CRCL DRUG DOSING (CG) 93.68 mL/min; PROTEIN TOTAL,TP 7.2 g/dl (6.4-8.2)
[2023-08-26 16:57] LABS: CREATININE,URINE RAND 251.6 mg/dL (30.0-125.0); PROTEIN CREATININE RATIO,URINE 267.5 mg/g (0-149); PROTEIN,URINE RANDOM 67.3 mg/dL (0.0-11.8)
[2023-08-26] MEDS ORDERED: Sodium Chloride 0.9% 10 ML Syringe FLUSH SCH (21:00)
[2023-08-26] MEDS ORDERED: Sodium Chloride 0.9% 1,000 ML ONE (21:06)
[2023-08-27] MEDS ORDERED: Magnesium Hydroxide 400 MG/5 ML Susp 30 ML Cup PO PRN (05:47)
[2023-08-27] MEDS ORDERED: Oxytocin/Lactated Ringers 30 UNIT/500 ML BAG IV SCH (05:47)
[2023-08-27] MEDS ORDERED: Benzocaine/Menthol 20%-0.5% Spray 78 GM Cannister TOP PRN (05:47)
[2023-08-27] MEDS ORDERED: Docusate Sodium 100 MG Cap PO PRN (05:47)
[2023-08-27] MEDS ORDERED: Acetaminophen 325 MG Tab PO PRN (05:47)
[2023-08-27] MEDS ORDERED: Witch Hazel Medicated Pads 40/Jar TOP PRN (05:47)
[2023-08-27] MEDS ORDERED: Hydrocortisone Acetate 25 MG Supp RECTAL PRN (05:47)
[2023-08-27] MEDS ORDERED: Levothyroxine 125 MCG Tab PO SCH (06:00)
[2023-08-27] MEDS: Levothyroxine 112 MCG Tab PO SCH (07:08)
[2023-08-27] MEDS: Levothyroxine 25 MCG Tab PO SCH (07:08)
[2023-08-27] MEDS: Ibuprofen 600 MG Tab PO PRN (16:32)
[2023-08-27] MEDS: Prenatal Multivitamin with Calcium/Folic Acid/Iron Tab PO SCH (17:45)
[2023-08-28] MEDS: Ibuprofen 600 MG Tab PO PRN (00:51)
[2023-08-28] MEDS: Levothyroxine 25 MCG Tab PO SCH (06:05)
[2023-08-28] MEDS: Levothyroxine 112 MCG Tab PO SCH (06:05)
[2023-08-28] MEDS: Prenatal Multivitamin with Calcium/Folic Acid/Iron Tab PO SCH (11:19)
== END 2023-08-28 13:10 | disposition home or self-care (01) | DRG 807 ==
LOC: JD.OB 12:51 → OBSVTOIN 08-27 02:15 → JD.ICU 08-27 02:16 → JD.MS 08-27 08:20 → JD.OB 08-27 14:04
PROVIDERS: ADMIT Obstetrics & Gynecology; ATTEND Obstetrics & Gynecology
PROC: 10E0XZZ Delivery of Products of Conception, External Approach (ICD-10-PCS; principal; 2023-08-27)
PROC: 3E0R3BZ Introduction of Anesthetic Agent into Spinal Canal, Percutaneous Approach (ICD-10-PCS; 2023-08-27)
PROC: 00HU33Z Insertion of Infusion Device into Spinal Canal, Percutaneous Approach (ICD-10-PCS; 2023-08-27)
PROC: 10H07YZ Insertion of Other Device into Products of Conception, Via Natural or Artificial Opening (ICD-10-PCS; 2023-08-27)
DX: O13.4 Gestational [pregnancy-induced] hypertension without significant proteinuria, complicating childbirth (principal); Z37.0 Single live birth; O77.0 Labor and delivery complicated by meconium in amniotic fluid; O76 Abnormality in fetal heart rate and rhythm complicating labor and delivery; O99.284 Endocrine, nutritional and metabolic diseases complicating childbirth; E03.9 Hypothyroidism, unspecified; O99.214 Obesity complicating childbirth; Z3A.39 39 weeks gestation of pregnancy; Z79.890 Hormone replacement therapy; Z88.2 Allergy status to sulfonamides
CPT/HCPCS: 36415; 51702; 59025; 59409; 80053; 82570; 83615; 84156; 85025; 86592; 86850; 86900; 86901; A9270-GY; J2371; J3010; J3490; J7120; J7999

== ENCOUNTER 2024-11-30 08:42 | Day surgery (SDC) | payer BC ==
[~2024-11-30 08:42] MED LIST changes: +Bupivacaine 0.25% 10 ML SDV ONE; -Lidocaine 1% 10 ML MDV ONE; -Phenylephrine 1% 10 MG/ML SDV ONE; +Sodium Chloride 0.9% 10 ML Syringe FLUSH PRN; +Sodium Chloride 0.9% 10 ML Syringe FLUSH SCH
[2024-11-30] MEDS: Lactated Ringers 1,000 ML IV SCH (09:00)
[2024-11-30] MEDS ORDERED: Midazolam 1 MG/ML 2 ML SDV ONE (09:03)
[2024-11-30] MEDS ORDERED: Propofol 200 MG/20 ML SDV ONE ×2 (09:03→12:10)
[2024-11-30] MEDS ORDERED: Lidocaine 2% 5 ML SDV ONE (09:03)
[2024-11-30] MEDS ORDERED: Ketorolac 15 MG/ML SDV ONE (09:03)
[2024-11-30] MEDS ORDERED: Dexamethasone 4 MG/ML 5 ML MDV ONE (09:03)
[2024-11-30] MEDS ORDERED: Sugammadex Sodium 200 MG/2 ML VIAL IV ONE (09:03)
[2024-11-30] MEDS ORDERED: Rocuronium 50 MG/5 ML Vial ONE (09:03)
[2024-11-30] MEDS ORDERED: Ondansetron 4 MG/2 ML SDV ONE (09:03)
[2024-11-30] MEDS ORDERED: fentaNYL 250 MCG/5 ML SDV ONE (09:03)
[2024-11-30] MEDS ORDERED: propofoL 1,000 MG/100 ML 100 ML ONE (09:04)
[2024-11-30] MEDS ORDERED: fentaNYL 100 MCG/2 ML SDV IVPUSH PRN (09:37)
[2024-11-30] MEDS ORDERED: HYDROmorphone 0.5 MG/0.5 ML Syringe IVPUSH ONE (09:37)
[2024-11-30 09:45] LABS: APPEARANCE,URINE CLEAR (Clear); BILIRUBIN,URINE NEGATIVE (Negative); COLOR,URINE YELLOW (Yellow); GLUCOSE,URINE NEGATIVE (Negative); KETONES,URINE NEGATIVE (Negative); LEUKOCYTE ESTERASE,URINE 2+ (Negative); NITRITE,URINE NEGATIVE (Negative); OCCULT BLOOD,URINE NEGATIVE (Negative); PH,URINE 6.5 (5.0-8.0); PROTEIN,URINE NEGATIVE (Negative); UROBILINOGEN,URINE 0.2 (0.2-1.0)
[2024-11-30 10:28] LABS: BACTERIA,URINE FEW /hpf (FEW); MUCUS,URINE FEW /hpf (FEW); RBC,URINE 0-5 /hpf (0-5)
[2024-11-30] MEDS ORDERED: ceFAZolin 2 GM Vial ONE (10:37)
[2024-11-30] MEDS ORDERED: Ketamine 200 MG/20 ML MDV ONE (10:49)
[2024-11-30] MEDS: Bupivacaine 0.5% 30 ML SDV ONE (10:57)
[2024-11-30] MEDS ORDERED: Phenylephrine 1% 10 MG/ML SDV ONE (10:58)
[2024-11-30] MEDS ORDERED: propofoL 500 MG/50 ML 50 ML ONE ×2 (11:06→11:34)
[2024-11-30] MEDS: Bupivacaine 0.25% 10 ML SDV ONE (11:38)
[2024-11-30] MEDS: EPINEPHrine 1 MG/ML SDV ONE (11:38)
[2024-11-30] MEDS: oxyCODONE 5 MG Tab PO PRN (15:15)
== END 2024-11-30 16:09 | disposition home or self-care (01) ==
LOC: JD.SDS 08:42
PROVIDERS: ATTEND Obstetrics & Gynecology
DX: N80.00 Endometriosis of the uterus, unspecified (principal); N83.8 Other noninflammatory disorders of ovary, fallopian tube and broad ligament; K21.9 Gastro-esophageal reflux disease without esophagitis; E03.9 Hypothyroidism, unspecified; F41.9 Anxiety disorder, unspecified; Z79.890 Hormone replacement therapy; Z79.899 Other long term (current) drug therapy; Z88.2 Allergy status to sulfonamides
CPT/HCPCS: 36415; 58552; 81001; 81025; 86850; 86900; 86901; A9270; J0171; J0665; J0690; J1100; J1885; J2003; J2250; J2371; J2405; J2704; J3010; J3490; J7120; 00944